=== PATIENT | male | born 1980 | race Two or more races ===

== ENCOUNTER → 2020-04-11 | Outpatient (CLI) | payer OTHER ==
--- NOTE | 2020-04-13 13:28 | ECHO ---
DATE OF PROCEDURE: 04/11/2020 Age: 40 Gender: Male Height: 178 cm Weight: 101 kg REFERRING PHYSICIAN: Roney Nix M.D. INDICATION: Hypertensive heart disease. MEASUREMENTS: IVS 1.2 cm LV 5.5 cm LVPW 1.0 cm LA 3.5 cm Aorta 3.3 cm IVC 1.7 cm Mitral E wave velocity 60, A wave 45 E prime septal 7.7, E prime lateral 9.3 FINDINGS: This study is of acceptable technical quality. The patient is in sinus rhythm. Left ventricle is normal size and has normal systolic function with estimated LVEF around 55% to 60%. I do not appreciate any segmental wall motion abnormalities. Borderline LVH is present. Right ventricle is normal size and systolic function as well. Both atria appear normal. Aortic, mitral, tricuspid, and pulmonic valves were all well seen and appear normal. No pericardial effusion is noted. Inferior vena cava is of normal size and appropriately collapses with inspiration, indicative of normal central venous pressure. Aortic root and aortic arch appear normal. Abdominal aorta was not visualized. Doppler interrogation reveals competent aortic valve. There is trace mitral and trace tricuspid insufficiency. Calculated pulmonary artery pressure is within normal limits. Pulmonic valve exhibits trace insufficiency as well. Mitral inflow pattern and tissue Doppler imaging of the mitral annulus revealed likely normal diastolic function even though tissue Doppler velocities of the mitral annulus are slightly reduced for patients age. CONCLUSIONS: 1. Study is of acceptable technical quality, underlying sinus rhythm. 2. Normal left ventricular (LV) size with borderline left ventricular hypertrophy (LVH), preserved left ventricular (LV) systolic and diastolic function. 3. No significant valvular disease. 4. Normal central venous pressure (CVP) and normal pulmonary artery pressure. MTDD
== END ==
LOC: M CARPUL 10:18
PROVIDERS: ATTEND Internal Medicine
DX: I11.9 Hypertensive heart disease without heart failure (principal)

== ENCOUNTER → 2022-11-05 | Outpatient (CLI) | payer OTHER | LOC: M RAD 09:18 | PROVIDERS: ATTEND Internal Medicine Rheumatology | DX: R76.8 Other specified abnormal immunological findings in serum (principal); M25.50 Pain in unspecified joint; H04.123 Dry eye syndrome of bilateral lacrimal glands | CPT/HCPCS: 36415; 72202; 73120; 73630; 80053; 81001; 81374; 82085; 82550; 82570; 83615; 84156; 85025; 85652; 86140; 86160; 86162; G0463 ==

== ENCOUNTER → 2022-11-05 | Outpatient (REF) | payer OTHER ==
[2022-11-05 13:33] LABS: BASO % 0.5 % (0.0-1.0); EOS # 0.1 10^3/uL (0.0-0.5); EOS % 1.7 % (0.0-3.0); HEMATOCRIT 44.2 % (42.0-52.0); HEMOGLOBIN 14.9 g/dl (13.5-17.5); LYMPH # 2.1 10^3/uL (1.5-5.0); LYMPH % 34.6 % (24.0-44.0); MEAN CORPUSCULAR HEMOGLOBIN 30.2 pg (27.0-33.0); MEAN CORPUSCULAR HGB CONC 33.7 g/dl (32.0-36.5); MEAN CORPUSCULAR VOLUME 89.5 fl (80.0-96.0); MONO # 0.5 10^3/uL (0.0-0.8); MONO % 8.2 % (2.0-8.0); NEUTROPHILS # 3.3 10^3/uL (1.5-8.5); NEUTROPHILS % 54.8 % (36.0-66.0); PLATELET COUNT, AUTOMATED 281 10^3/uL (150-450); RED BLOOD COUNT 4.94 10^6/uL (4.30-6.10)
[2022-11-05 13:47] LABS: TOTAL PROTEIN,RANDOM URINE 9.9 MG/DL (0.0-14.0)
[2022-11-05 13:51] LABS: APPEARANCE, URINE CLEAR (CLEAR); BACTERIA, URINE AUTO NEGATIVE (NEGATIVE); BILIRUBIN, URINE AUTO NEGATIVE (NEGATIVE); BLOOD, URINE BLOOD NEGATIVE (NEGATIVE); C REACTIVE PROTEIN QUANTITATIV < 0.40 MG/DL (<1.0); COLOR, URINE YELLOW (YELLOW); COMPLEMENT C3 138.4 MG/DL (90.0-170.0); GLUCOSE, URINE (UA) AUTO NEGATIVE (NEGATIVE); KETONE, URINE AUTO NEGATIVE (NEGATIVE); LEUKOCYTE ESTERASE, URINE AUTO NEGATIVE (NEGATIVE); MUCUS, URINE SMALL (NEGATIVE); NITRITE, URINE AUTO NEGATIVE (NEGATIVE); PROTEIN, URINE AUTO NEGATIVE (NEGATIVE); RBC, URINE AUTO 1 /HPF (0-3); SQUAMOUS EPITHELIAL CELL UR AU 0 /HPF (0-6); WBC, URINE AUTO 0 /HPF (0-3)
[2022-11-05 13:52] LABS: LDH LACTATE DEHYDROGENASE 164 U/L (120-246)
[2022-11-05 13:53] LABS: ALBUMIN 4.3 G/DL (3.2-5.2); ALKALINE PHOSPHATASE 67 U/L (46-116); ALT/SGPT 45 U/L (7.0-40); AST/SGOT 21 U/L (<34); BILIRUBIN,TOTAL 1.6 MG/DL (0.3-1.2); BLOOD UREA NITROGEN 16 MG/DL (9-23); CALCIUM LEVEL 9.6 MG/DL (8.5-10.1); CARBON DIOXIDE LEVEL 26 MMOL/L (20-31); CHLORIDE LEVEL 105 MMOL/L (98-107); COMPLEMENT C4 24.2 MG/DL (12-36); CPK CREATINE PHOSPHOKINASE 319 U/L (46-171); CREATININE FOR GFR 0.77 MG/DL (0.70-1.30); GLOMERULAR FILTRATION RATE > 60.0 (>60); GLUCOSE, FASTING 89 MG/DL (60-100); POTASSIUM SERUM 4.1 MMOL/L (3.5-5.1); SODIUM LEVEL 137 MMOL/L (136-145); TOTAL PROTEIN 7.5 G/DL (5.7-8.2)
[2022-11-05 14:04] LABS: ERYTHROCYTE SEDIMENTATION RATE 17 mm/hr (0-15)
[2022-11-06 15:08] LABS: ALDOLASE 3.4 U/L (3.3-10.3)
== END ==
LOC: M SFHCRHEU 08:41
PROVIDERS: ATTEND Internal Medicine Rheumatology
DX: R76.8 Other specified abnormal immunological findings in serum (principal); M25.50 Pain in unspecified joint; H04.123 Dry eye syndrome of bilateral lacrimal glands

== ENCOUNTER → 2023-05-25 | Outpatient (REF) | payer OTHER ==
[2023-05-26 13:26] LABS: HEMATOCRIT 44.5 % (42.0-52.0)
[2023-05-26 13:41] LABS: IRON (FE) 72 UG/DL (65-175); PERCENT SATURATION 24.3 % (19.7-50.0); TOTAL IRON BINDING CAPACITY 296 UG/DL (250-425)
[2023-05-26 13:47] LABS: FERRITIN 239.8 NG/ML (10.5-307.3)
[2023-05-26 14:19] LABS: HEPATITIS B CORE ANTIBODY IGM NEGATIVE (NEGATIVE); HEPATITIS C VIRUS ABY INDEX 0.06 INDEX (<0.8)
[2023-05-27 12:09] LABS: ANTINUCLEAR ANTIBODIES DIRECT Negative (Negative)
== END ==
LOC: M LAB REF 15:43
PROVIDERS: ATTEND Nurse Practitioner Adult Health
DX: R74.01 Elevation of levels of liver transaminase levels (principal)

== ENCOUNTER → 2023-06-01 | Outpatient (CLI) | payer OTHER | LOC: M RAD 07:35 | PROVIDERS: ATTEND Nurse Practitioner Adult Health | DX: R79.89 Other specified abnormal findings of blood chemistry (principal); K76.0 Fatty (change of) liver, not elsewhere classified; N28.89 Other specified disorders of kidney and ureter ==

== ENCOUNTER → 2023-06-22 | Outpatient (CLI) | payer OTHER ==
[2023-06-22 13:31] LABS: APPEARANCE, URINE CLEAR (CLEAR); BACTERIA, URINE AUTO NEGATIVE (NEGATIVE); BILIRUBIN, URINE AUTO NEGATIVE (NEGATIVE); BLOOD, URINE BLOOD NEGATIVE (NEGATIVE); COLOR, URINE STRAW (YELLOW); GLUCOSE, URINE (UA) AUTO NEGATIVE (NEGATIVE); KETONE, URINE AUTO NEGATIVE (NEGATIVE); LEUKOCYTE ESTERASE, URINE AUTO NEGATIVE (NEGATIVE); NITRITE, URINE AUTO NEGATIVE (NEGATIVE); PROTEIN, URINE AUTO NEGATIVE (NEGATIVE); RBC, URINE AUTO 0 /HPF (0-3); SPECIFIC GRAVITY URINE AUTO 1.005 (1.002-1.035); SQUAMOUS EPITHELIAL CELL UR AU 0 /HPF (0-6); UROBILINOGEN, URINE AUTO 0.2 mg/dL (0.0-2.0); WBC, URINE AUTO 0 /HPF (0-3)
[2023-06-22 13:37] LABS: BASO % 0.7 % (0.0-1.0); EOS # 0.1 10^3/uL (0.0-0.5); HEMATOCRIT 43.6 % (42.0-52.0); HEMOGLOBIN 14.9 g/dl (13.5-17.5); LYMPH # 2.4 10^3/uL (1.5-5.0); LYMPH % 38.8 % (24.0-44.0); MEAN CORPUSCULAR HEMOGLOBIN 30.7 pg (27.0-33.0); MEAN CORPUSCULAR HGB CONC 34.2 g/dl (32.0-36.5); MEAN CORPUSCULAR VOLUME 89.7 fl (80.0-96.0); MONO # 0.4 10^3/uL (0.0-0.8); NEUTROPHILS # 3.1 10^3/uL (1.5-8.5); NEUTROPHILS % 51.3 % (36.0-66.0); PLATELET COUNT, AUTOMATED 313 10^3/uL (150-450); RED BLOOD COUNT 4.86 10^6/uL (4.30-6.10); WHITE BLOOD COUNT 6.1 10^3/uL (4.0-10.0)
[2023-06-22 13:45] LABS: ERYTHROCYTE SEDIMENTATION RATE 11 mm/hr (0-15)
[2023-06-22 14:03] LABS: CREATININE,RANDOM URINE 32.9 MG/DL
[2023-06-22 14:07] LABS: C REACTIVE PROTEIN QUANTITATIV < 0.40 MG/DL (<1.0)
[2023-06-22 14:08] LABS: COMPLEMENT C3 140.7 MG/DL (90.0-170.0); COMPLEMENT C4 23.5 MG/DL (12-36); CPK CREATINE PHOSPHOKINASE 274 U/L (46-171); LDH LACTATE DEHYDROGENASE 157 U/L (120-246)
[2023-06-22 14:09] LABS: ALBUMIN 4.3 G/DL (3.2-5.2); ALKALINE PHOSPHATASE 65 U/L (46-116); ALT/SGPT 48 U/L (7.0-40); AST/SGOT 22 U/L (<34); BILIRUBIN,TOTAL 0.9 MG/DL (0.3-1.2); BLOOD UREA NITROGEN 10 MG/DL (9-23); CALCIUM LEVEL 9.2 MG/DL (8.5-10.1); CARBON DIOXIDE LEVEL 28 MMOL/L (20-31); CHLORIDE LEVEL 106 MMOL/L (98-107); CREATININE FOR GFR 0.89 MG/DL (0.70-1.30); GLOMERULAR FILTRATION RATE > 60.0 (>60); GLUCOSE, FASTING 99 MG/DL (60-100); POTASSIUM SERUM 4.9 MMOL/L (3.5-5.1); SODIUM LEVEL 140 MMOL/L (136-145); TOTAL PROTEIN 7.6 G/DL (5.7-8.2)
[2023-06-22 14:21] LABS: TOTAL PROTEIN,RANDOM URINE < 6.0 MG/DL (0.0-14.0)
== END ==
LOC: M PLALAB 09:05
PROVIDERS: ATTEND Internal Medicine Rheumatology
DX: R76.8 Other specified abnormal immunological findings in serum (principal)

== ENCOUNTER → 2023-12-18 | Outpatient (REF) | payer OTHER | LOC: M LAB REF 16:28 | PROVIDERS: ATTEND Nurse Practitioner Adult Health | DX: R63.5 Abnormal weight gain (principal) ==

== ENCOUNTER → 2024-09-28 | Outpatient (CLI) | payer OTHER ==
[~2024-09-28] MED LIST: ATOR1TAB21 PO; CARV6.25 PO; LISI10TA22 PO; MAGN400C PO; NEUR300C PO; NOXI1TAB PO; THERTAB52 PO
== END ==
LOC: M SOG 06:58
PROVIDERS: ATTEND Physician Assistant
DX: M25.562 Pain in left knee (principal); M25.561 Pain in right knee; M17.0 Bilateral primary osteoarthritis of knee